=== PATIENT | female | born 1975 | race Caucasian/White ===

== ENCOUNTER → 2020-06-09 14:28 | Outpatient (CLI) | payer OTHER, SELFPAY ==
--- NOTE | 2020-06-09 14:30 | DI.RAD.S_ITS ---
PROCEDURE: XR HIP W PEL IF DONE RT 2V INDICATIONS: pain w/ pop sensation to ischial tuberosity TECHNIQUE: AP pelvis with lateral view(s) of the right hip(s). COMPARISON: None. FINDINGS: Bones: No fractures or dislocations. Pelvic ring appears intact. No evidence of avascular necrosis of femoral head. No suspicious bony lesions. Soft tissues: The visualized bowel gas pattern is normal. No suspicious soft tissue calcifications. IMPRESSION: Unremarkable radiographic examination of right hip. Dictated by: Marlon Howard M.D. on 06/09/2020 at 15:33 Approved by: Marlon Howard M.D. on 06/09/2020 at 15:33
== END ==
PROVIDERS: Referring Provider Physician Assistant; Visit Provider Physician Assistant
DX: M25.551 Pain in right hip (principal)
CPT/HCPCS: 73502